=== PATIENT | female | born 1970 | race African-American/Black ===

== ENCOUNTER 2023-09-24 15:46 | Emergency (ER) | payer SELFPAY ==
[~2023-09-24] VITALS: Ht 162.6 cm; Wt 102.3 kg
[2023-09-24 16:58] LABS: Urine Bacteria None Seen /hpf (None Seen)
[2023-09-24 17:06] LABS: Urine Blood Negative /uL (Negative); Urine Clarity Clear (Clear); Urine Color Light-Yellow (Yellow); Urine Protein, UAD Negative (Negative); Urine Specific Gravity 1.019 (1.001-1.035); Urine Urobilinogen Normal (Negative); Urine WBC <1 /hpf (0 - 5); Urine pH 5.5 (5.0-9.0)
[2023-09-24] MEDS ORDERED: CYCL-837 PO (17:58)
[2023-09-24] MEDS ORDERED: IBUP-1455 PO (17:58)
[2023-09-24 21:46] VITALS: BP 129/66; TEMP 97.8
[2023-09-24 21:49] VITALS: PULSE 84; RESP 20; O2SAT 98
== END 2023-09-24 21:51 | disposition home or self-care (01) ==
LOC: ER 15:46
DX: M54.16 Radiculopathy, lumbar region (principal); M54.59 Other low back pain
CPT/HCPCS: 81001